=== PATIENT | male | born 1970 | race Caucasian/White ===

== ENCOUNTER 2022-01-07 13:08 | Emergency (ER) | payer OTHER, SELFPAY ==
--- NOTE | 2022-01-07 14:10 | ED_ITS ---
HPI - Wound/Laceration General: Chief Complaint: Needlestick/Injury/Exposure Stated Complaint: NEEDLE STICK Time Seen by Provider: 01/07/22 14:09 Source: patient Mode of arrival: ambulatory Limitations: no limitations History of Present Illness: 51 yr old male presents to the ER today after an accidental needle stick just prior to arrival. Pt was doing a straight stick on a patient and the needle bent and poked him in the R pinky finger. Pt reports no hx of hep or HIV. Tetanus status up to date. Review of Systems General: Reports: 10 or more systems reviewed and unremarkable except in HPI and below Physical Exam Skin: NARRATIVE SKIN EXAM: pt is noted to have a small needle stick hannah to the R pinky finger, no active bleeding is noted Course ED course: 51-year-old male presents to the ER today for a needlestick. Patient was working with another patient when the needle bent and struck him in the right pinky finger. Patient reports no current bleeding. No open wound. Patient does not have any prior history of any blood-borne illnesses. We will get a hepatitis and HIV panel done today. MDM - Wound/Laceration Medical Decision Making 51-year-old male presents to the ER today for a needlestick. Patient was working with another patient when the needle bent and struck him in the right pinky finger. Patient reports no current bleeding. No open wound. Patient does not have any prior history of any blood-borne illnesses. We will get a hepatitis and HIV panel done today. This was done in the ER. Patient will likely have this repeated in 3 to 6 months. Follow-up with PCP or work comp doctor. Critical Care Time Critical Care Time: Critical Care Time: No Discharge Plan Discharge Patient Disposition: Home Clinical Impression: Exposure to blood or body fluid Condition: Stable Prescriptions: No Action Tremfya 100 mg/mL syringe See Rx Instructions .ROUTE .COMPLEX Rx Instructions: 100 mg subcutaneously every 8 weeks Discharge Orders: Discharge ED (Routine); Ordered 01/07/22 Ordered By: Italia Lutz Discharge Diet: Usual diet Discharge Activity: Resume usual activity Patient Instructions: Opioid Safety Activity Restrictions/Additional Instructions: Keep clean. Wash with warm soapy water. Follow-up in 3 to 6 months for repeat labs. Coding Level of Care Code ED [employer] Supervisor for [employer]
[2022-01-07 15:29] LABS: HIV 1 & 2 Antibody Non-Reactive (Non-Reactiv); HIV 1 & 2 Antigen Non-Reactive (Non-Reactiv)
[2022-01-07 15:50] LABS: Hepatitis A Antibody IgM Non-Reactive (Nonreactive); Hepatitis B Core IgM Non-Reactive (Nonreactive); Hepatitis B Surface Antigen Non-Reactive (Nonreactive); Hepatitis C Virus Antibody Non-Reactive (Nonreactive)
== END 2022-01-07 15:07 | disposition home or self-care (01) ==
PROVIDERS: Emergency Provider Physician Assistant
DX: S61.236A Puncture wound without foreign body of right little finger without damage to nail, initial encounter (principal); W46.0XXA Contact with hypodermic needle, initial encounter; Y99.0 Civilian activity done for income or pay; Z77.21 Contact with and (suspected) exposure to potentially hazardous body fluids
CPT/HCPCS: 36415; 80074; 87806; 99283